=== PATIENT | male | born 1935 | race Caucasian/White ===

== ENCOUNTER → 2016-10-18 | Outpatient (CLI) | payer MEDICARE, OTHER ==
[~2016-10-18] MED LIST: AMITIZA24 MCG PO; ANORO ELLIPTA 62.1 - IH; ASA CHILDREN'S81 MG PO; ATORVASTATIN CA40 MG PO; AZILECT1 MG PO; BETAPACE80 MG PO; CLOTRIMAZOLE AF30 GM TP; COUMADIN DPS3 MG PO; COUMADIN3 MG PO; COZAAR DPS50 MG PO; DELTASONE DPS10 MG PO; DUONEB DPS3 ML IH; FLEXERIL DPS5 MG PO; HYDROCODON-ACE1 EAC2 PO; MAALOX DPS30 ML PO; METAMUCIL0.52 GM PO; MIRALAX17 GM PO; MUCOMYST 20% DP30 ML PO; NEUPRO1 EAC1 TD; NORVASC5 MG PO; PROAIR HFA8.5 GM IH; PROTONIX40 MG PO; SENNA S TABLET1 EACH PO; SINEMET CR 50-1 EACH PO; SURFAK240 MG PO; TYLENOL325 MG PO; VIBRAMYCIN100 MG PO; ZITHROMAX250 MG PO; ZOFRAN ODT4 MG PO; ZOLEDRONIC ACID4 MG IV; ZYRTEC DPS10 MG PO; [UNRECOGNIZED DRUG - REMARK] NS
== END | disposition home or self-care (01) ==
LOC: RAD.S 10-17 12:50
DX: G89.4 Chronic pain syndrome (principal); M47.816 Spondylosis without myelopathy or radiculopathy, lumbar region; M47.814 Spondylosis without myelopathy or radiculopathy, thoracic region; M81.0 Age-related osteoporosis without current pathological fracture; M41.9 Scoliosis, unspecified; Z98.890 Other specified postprocedural states

== ENCOUNTER 2016-11-17 23:17 | Inpatient (IN) | payer MEDICARE, OTHER ==
[~2016-11-17 23:17] MED LIST changes: -ASA CHILDREN'S81 MG PO; -ATORVASTATIN CA40 MG PO; -CLOTRIMAZOLE AF30 GM TP; -FLEXERIL DPS5 MG PO; -ZOLEDRONIC ACID4 MG IV; -[UNRECOGNIZED DRUG - REMARK] NS
[2016-11-22] MEDS ORDERED: ASA CHILDREN'S81 MG PO (11:20)
[2016-11-22] MEDS ORDERED: ATORVASTATIN CA40 MG PO (11:20)
[2016-11-22] MEDS ORDERED: CLOTRIMAZOLE AF30 GM TP (11:20)
[2016-11-22] MEDS ORDERED: FLEXERIL DPS5 MG PO (11:20)
[2016-11-22] MEDS ORDERED: [UNRECOGNIZED DRUG - REMARK] NS (11:22)
[2016-11-22] MEDS ORDERED: ZOLEDRONIC ACID4 MG IV (11:23)
== END 2016-11-21 11:00 | disposition home or self-care (01) | DRG 281 ==
DX: I21.4 Non-ST elevation (NSTEMI) myocardial infarction (principal); I48.1 Persistent atrial fibrillation; G20 Parkinson's disease; R13.10 Dysphagia, unspecified; Z99.81 Dependence on supplemental oxygen; I25.10 Atherosclerotic heart disease of native coronary artery without angina pectoris; I10 Essential (primary) hypertension; J44.9 Chronic obstructive pulmonary disease, unspecified; M54.9 Dorsalgia, unspecified; G47.33 Obstructive sleep apnea (adult) (pediatric); M81.0 Age-related osteoporosis without current pathological fracture; K21.9 Gastro-esophageal reflux disease without esophagitis; K59.09 Other constipation; Z79.01 Long term (current) use of anticoagulants; Z87.891 Personal history of nicotine dependence; Z66 Do not resuscitate; Z86.79 Personal history of other diseases of the circulatory system